=== PATIENT | female | born 1995 | race Caucasian/White ===

== ENCOUNTER 2020-12-23 07:42 | Outpatient (CLI) | payer BC, SELFPAY ==
[2020-12-23 12:18] LABS: HCG Quant, Pregnancy 111347 mIU/mL (1-3)
== END 2020-12-23 07:43 | disposition home or self-care (01) ==
LOC: LBO 07:50
PROVIDERS: PCP Family Medicine; Visit Provider Nurse Practitioner Women's Health
DX: O09.891 Supervision of other high risk pregnancies, first trimester (principal); Z97.5 Presence of (intrauterine) contraceptive device; Z32.01 Encounter for pregnancy test, result positive
CPT/HCPCS: 36415; 86850; 86900; 86901; 84702

== ENCOUNTER 2021-01-28 02:39 | Outpatient (CLI) | payer BC, SELFPAY ==
[2021-01-28 16:47] LABS: Kit/Specimen SENT
[2021-01-28 16:59] LABS: Abs Immature Grans 0.02 10^3/uL (0.0-0.06); Absolute Basophil Count 0.04 10^3/uL (0.0-0.2); Absolute Eosinophil Count 0.04 10^3/uL (0.0-0.7); Absolute Lymphocyte Count 1.85 10^3/uL (1.2-3.4); Absolute Monocyte Count 0.49 10^3/uL (0.1-0.8); Absolute Neutrophil Count 6.23 10^3/uL (1.2-6.7); Basophils % 0.5; Eosinophils % 0.5; HCT 39.2 % (36.0-46.0); HGB 13.5 g/dL (11.2-15.7); Immature Grans % 0.2; Lymphocytes % 21.3; MCH 32.5 pg (27.0-33.0); MCHC 34.4 % (32.0-36.0); MCV 94.5 fL (80-95); MPV 10.6 fL (8.0-11.0); Monocytes % 5.7; Neutrophils % 71.8; Nucleated RBC 0 %; Platelet Count 280 10^3/uL (130-400); RBC 4.15 10^6/uL (3.93-5.22); RDW 11.7 % (11.7-14.6); RDW-SD 40.7 fL; WBC 8.67 10^3/uL (4.4-10.8)
[2021-01-30 09:24] LABS: Hepatitis B Surface Ag Negative (Negative)
[2021-01-30 10:07] LABS: Hepatitis C Ab w Rflx HCV PCR Negative (Negative)
[2021-01-30 10:25] LABS: HIV-1/2 Ag & Ab Screen Negative (Negative)
[2021-01-30 10:51] LABS: Varicella IgG Antibody Positive (See Note)
[2021-01-30 10:54] LABS: Rubella IgG Ab (UVM) Positive (See Note)
[2021-01-30 15:20] LABS: Syphilis Total Ab w/Reflex Nonreactive (Nonreactive)
== END 2021-01-28 02:40 | disposition home or self-care (01) ==
LOC: LBO 02:39
PROVIDERS: PCP Family Medicine; Visit Provider Advanced Practice Midwife
DX: Z34.91 Encounter for supervision of normal pregnancy, unspecified, first trimester (principal); Z11.4 Encounter for screening for human immunodeficiency virus [HIV]; Z11.59 Encounter for screening for other viral diseases; Z01.84 Encounter for antibody response examination; Z3A.12 12 weeks gestation of pregnancy
CPT/HCPCS: 36415; 86787; 86803; 86850; 86900; 86901; 87340; 87389; 85025; 86762; 86780

== ENCOUNTER 2021-01-28 16:07 | Outpatient (REF) | payer BC, SELFPAY ==
--- NOTE | 2021-01-28 15:45 | PAPFT_PTH ---
PATIENT: Azalea Rousseau LOC: [facility] U#:[id number] AGE/SX: 25/F ROOM: RE01/28/[address]: Susana Cunningham : 1995 BED: DIS: 01/28/2021 SPEC #: [id number] RECD: 01/28/21 18:02 STATUS: MARCIA SU #: [id number] MICKI: 01/28/21 15:[address]: Susana Cunningham [facility] Cytology RECD BY: Irma Caruso ENTERED: 01/28/21 18:02 SP TYPE: PAPFT OTHR DR: Dmitriy Keller Tissues: 1 - CX/ENDOCX FOR PAP SMEARS Procedures: PAP THIN PREP/[facility] Screening Comments: [id number]
[2021-01-28 17:30] LABS: *AMPHETAMINES SCREEN URINE Negative (Negative); *BARBITURATES SCREEN URINE Negative (Negative); *BENZODIAZEPINES SCREEN URINE Negative (Negative); Cannabinoids THC Negative (Negative); Cocaine Screen,Urine Negative (Negative); METHADONE URINE SCREEN Negative (Negative); OPIATES URINE SCREEN Negative (Negative)
[2021-01-28 17:33] LABS: Tricyclic Antidepressants Negative (Negative)
[2021-01-30 14:29] LABS: Chlamydia Result Negative (Negative); GC Result Negative (Negative)
[2021-02-03 11:20] LABS: Buprenorphine Negative ng/mL (Cutoff: 5.0); Norbuprenorphine Negative ng/mL (Cutoff: 2.5)
== END 2021-01-28 16:08 | disposition home or self-care (01) ==
LOC: LBN 16:07
PROVIDERS: PCP Family Medicine; Visit Provider Advanced Practice Midwife
DX: Z12.4 Encounter for screening for malignant neoplasm of cervix (principal); Z11.3 Encounter for screening for infections with a predominantly sexual mode of transmission; Z3A.12 12 weeks gestation of pregnancy; Z34.91 Encounter for supervision of normal pregnancy, unspecified, first trimester
CPT/HCPCS: 80307; 87491; 87591; 88142; 87086; 87480; 87510; 87660

== ENCOUNTER 2021-05-22 01:18 | Outpatient (CLI) | payer BC, SELFPAY ==
[2021-05-22 09:50] LABS: HCT 35.7 % (36.0-46.0); MCH 32.3 pg (27.0-33.0); MCHC 33.6 % (32.0-36.0); MCV 96.2 fL (80-95); MPV 11.2 fL (8.0-11.0); Platelet Count 221 10^3/uL (130-400); RBC 3.71 10^6/uL (3.93-5.22); RDW 11.9 % (11.7-14.6); RDW-SD 41.8 fL; WBC 6.42 10^3/uL (4.4-10.8)
[2021-05-22 10:01] LABS: Glucose,1 Hr (Glucola) 115 mg/dL (80-140)
== END 2021-05-22 01:19 | disposition home or self-care (01) ==
LOC: LBO 01:18
PROVIDERS: PCP Family Medicine; Visit Provider Advanced Practice Midwife
DX: Z34.93 Encounter for supervision of normal pregnancy, unspecified, third trimester (principal)
CPT/HCPCS: 36415; 82950; 85027

== ENCOUNTER 2021-06-23 13:32 | Outpatient (CLI) | payer BC, SELFPAY ==
[2021-06-23] VITALS (8 sets, daily range): BP systolic 120–133; BP diastolic 83–92; PULSE 75–99; TEMP 36.5
[2021-06-23 15:03] LABS: HCT 37.1 % (36.0-46.0); HGB 12.1 g/dL (11.2-15.7); MCH 31.3 pg (27.0-33.0); MCHC 32.6 % (32.0-36.0); MCV 95.9 fL (80-95); MPV 10.8 fL (8.0-11.0); Platelet Count 204 10^3/uL (130-400); RBC 3.87 10^6/uL (3.93-5.22); RDW 11.7 % (11.7-14.6); RDW-SD 40.3 fL; WBC 8.05 10^3/uL (4.4-10.8)
[2021-06-23 15:23] LABS: ALT 14 U/L (14-59); AST 16 U/L (15-37); Albumin 2.9 g/dL (3.4-5.0); Alkaline Phosphatase 97 U/L (46-116); Anion Gap 9.5 mmol/L (3-11); BUN 5 mg/dL (7-18); Bilirubin, Total 0.2 mg/dL (0.2-1.0); CO2 25.5 mmol/L (21.0-32.0); CREATININE 0.5 mg/dL (0.55-1.02); Calcium 8.8 mg/dL (8.5-10.1); Chloride 106 mmol/L (98-107); Glucose 82 mg/dL (74-106); Potassium 3.8 mmol/L (3.5-5.1); Sodium 141 mmol/L (136-145); Total Protein 7.1 g/dL (6.4-8.2); Uric Acid 3.5 mg/dL (2.6-6.0)
[2021-06-23 15:30] LABS: PROTEIN < 6.0 mg/dL
--- NOTE | 2021-06-23 15:45 | W.OBNST ---
Date of service: 06/23/21 Time of Service: 15:46 NST Evaluation Reason for NST Reasons for Nonstress Test: GESTATIONAL HYPERTENSION Gestational Age Gestational Age in Weeks and Days: 32 Weeks and 6Days Test and Monitor Explained Test/Monitor Explained: Test Explained, Monitor Explained and Patient Verbalized Understanding Vital Signs Blood Pressure: 130/83 Pulse: 81 Temperature: 97.7 F NST Information Date on Monitor: 06/23/21 Time on Monitor: 13:33 Date off Monitor: 06/23/21 Time off Monitor: 14:24 Total Time on Monitor: 51 NST Interventions: PO Hydration NST Evaluation Patient States Movement: Present FHR Baseline: 140 Variability: Moderate 6-25 bpm Accelerations: 15x15 Decelerations: None NST Results: Reactive Note NST Note Note: BP 129/87 Labs nml, pt without sx RTO 1 week for repeat NST & BP check NST Reviewed and Verified by: Sharon Barron
[2021-06-23 16:22] LABS: COMMENT (LAB VIEW ONLY) 10.16 mg/dL
== END 2021-06-23 15:30 | disposition home or self-care (01) ==
LOC: BCD 13:35 → OBS 13:36
PROVIDERS: PCP Family Medicine; Visit Provider Advanced Practice Midwife
DX: O13.3 Gestational [pregnancy-induced] hypertension without significant proteinuria, third trimester (principal); Z3A.32 32 weeks gestation of pregnancy
CPT/HCPCS: 80053; 85027; 86850; 86900; 86901; 99211; 59025; 82565; 84156; 84550; 87086

== ENCOUNTER 2021-06-30 07:17 | Outpatient (CLI) | payer BC, SELFPAY ==
[2021-06-30 10:48] VITALS: BP 126/76; PULSE 95
[2021-06-30 10:49] VITALS: BP 126/76; PULSE 95; TEMP 36.9
--- NOTE | 2021-06-30 11:00 | W.OBNST ---
Date of service: 06/30/21 Time of Service: 10:50 NST Evaluation Reason for NST Reasons for Nonstress Test: GESTATIONAL HYPERTENSION Gestational Age Gestational Age in Weeks and Days: 33 Weeks and 6Days Test and Monitor Explained Test/Monitor Explained: Test Explained, Monitor Explained and Patient Verbalized Understanding Vital Signs Blood Pressure: 126/76 Pulse: 95 Temperature: 98.4 F Urine Results Urine Protein: Negative Urine Ketones: Negative Urine Glucose: Negative Urine Blood: Negative NST Information Date on Monitor: 06/30/21 Time on Monitor: 10:35 Date off Monitor: 06/30/21 NST Interventions: None NST Evaluation Patient States Movement: Present FHR Baseline: 120 Variability: Moderate 6-25 bpm Accelerations: 15x15 Decelerations: None NST Results: Reactive Note NST Note Note: Malathi presents for NST due to stage I HTN in . She is feeling well. Has no complaints. She had a tick bite this past weekend and is watching for any signs of bullseye or illness. No current symptoms. She denies HARTLEY, visual disturbance or epigastric pain. She is still living in [place] with her . They moved there for a work project for her but hopes to ultimately come back to this area to live. She will be moving in with her parents as she gets closer to her due date and they live [place] [address] from [facility]. She was offered flu vaccine today and declines. She will return in 1 week for NST and combined visit. She has been educated on signs of pre-eclampsia and when / how to call. We also discussed looking up a number of a closer hospital in case there is an urgent need for care such as ROM or vaginal bleeding prior to her relocating to her parents home here. No other questions today. BRYCE NST Reviewed and Verified by: Susana Brambila
[2021-06-30 11:04] VITALS: BP 126/76; PULSE 95; TEMP 36.9
[2021-06-30 11:06] VITALS: BP 126/76; PULSE 95; TEMP 36.9
== END 2021-06-30 11:08 | disposition home or self-care (01) ==
LOC: BCD 07:23 → OBS 09:52
PROVIDERS: PCP Family Medicine; Visit Provider Advanced Practice Midwife
DX: O13.3 Gestational [pregnancy-induced] hypertension without significant proteinuria, third trimester (principal); Z3A.33 33 weeks gestation of pregnancy
CPT/HCPCS: 59025

== ENCOUNTER 2021-07-07 08:56 | Outpatient (CLI) | payer BC, SELFPAY ==
[2021-07-07 10:16] VITALS: BP 131/81; PULSE 83; TEMP 37.1
[2021-07-07 10:54] VITALS: BP 131/81; PULSE 83
[2021-07-07 11:06] VITALS: BP 137/89; PULSE 94
[2021-07-07 11:49] LABS: HCT 35.1 % (36.0-46.0); HGB 11.6 g/dL (11.2-15.7); MCH 31.7 pg (27.0-33.0); MCV 95.9 fL (80-95); MPV 11.1 fL (8.0-11.0); Platelet Count 210 10^3/uL (130-400); RBC 3.66 10^6/uL (3.93-5.22); RDW-SD 41.9 fL; WBC 8.04 10^3/uL (4.4-10.8)
[2021-07-07 12:14] LABS: ALT 12 U/L (14-59); AST 16 U/L (15-37); Albumin 2.7 g/dL (3.4-5.0); Alkaline Phosphatase 105 U/L (46-116); Anion Gap 9.9 mmol/L (3-11); BUN 5 mg/dL (7-18); Bilirubin, Total 0.2 mg/dL (0.2-1.0); CO2 24.1 mmol/L (21.0-32.0); CREATININE 0.5 mg/dL (0.55-1.02); Calcium 8.7 mg/dL (8.5-10.1); Chloride 106 mmol/L (98-107); Glucose 106 mg/dL (74-106); Potassium 3.6 mmol/L (3.5-5.1); Sodium 140 mmol/L (136-145); Total Protein 6.5 g/dL (6.4-8.2); Uric Acid 3.8 mg/dL (2.6-6.0)
--- NOTE | 2021-07-07 12:28 | PDOC.NST_ITS ---
Date of service: 07/07/21 Time of Service: 12:28 NST Evaluation Reason for NST Reasons for Nonstress Test: GESTATIONAL HYPERTENSION Gestational Age Gestational Age in Weeks and Days: 34 Weeks and 6Days Test and Monitor Explained Test/Monitor Explained: Test Explained, Monitor Explained and Patient Verbalized Understanding Vital Signs Blood Pressure: 131/81 Pulse: 83 Temperature: 98.8 F Urine Results Urine Protein: Negative Urine Ketones: Negative Urine Glucose: Negative Urine Blood: Negative NST Information Date on Monitor: 07/07/21 Time on Monitor: 10:16 NST Interventions: None NST Evaluation Patient States Movement: Present Variability: Moderate 6-25 bpm Accelerations: 15x15 Decelerations: None NST Results: Reactive Note NST Note Note: B.P. recheck 137/89. preeclampsia panel drawn. Await results. RTO 1 week f or NST and US for growth and TEAGAN,. Sihns of preeclampsia reviewed. NST Reviewed and Verified by: Susana Cunningham
[2021-07-07 12:30] VITALS: BP 131/81; PULSE 83; TEMP 37.1
[2021-07-07 14:27] LABS: COMMENT (LAB VIEW ONLY) 17.57 mg/dL; PROTEIN < 6.0 mg/dL
== END 2021-07-07 11:53 | disposition home or self-care (01) ==
LOC: BCD 08:58 → OBS 10:14
PROVIDERS: PCP Family Medicine; Visit Provider Advanced Practice Midwife
DX: O13.3 Gestational [pregnancy-induced] hypertension without significant proteinuria, third trimester (principal); Z3A.34 34 weeks gestation of pregnancy
CPT/HCPCS: 59025; 36415; 80053; 85027; 82565; 84156; 84550

== ENCOUNTER 2021-07-15 01:38 | Outpatient (CLI) | payer BC, SELFPAY ==
--- NOTE | 2021-07-15 07:30 | DI.US_ITS ---
Exam(s) US OB TEAGAN WEIGHT EXAM: US OB TEAGAN WEIGHT CLINICAL HISTORY: interval growth,HYPERTENSION,I10,Z34.90 TECHNIQUE: Ultrasound performed using standard protocol. COMPARISON: US US OB 2-3 TRIMESTER from 03/27/2021 FINDINGS: Ob ultrasound was performed utilizing 3rd trimester protocol. biometry is consistent with a ge stational age of 36 weeks 0 days and EDC of October 13. The estimated weight is 2846 grams which is at the 54th percentile for predicted gestational ag e. Placenta is posterior with no placenta previa. There is visually a normal quantity of amniotic fluid . The TEAGAN is 21. Fetus is in cephalic presentation. heart rate is 1 2 1 BPM. IMPRESSION: DATA REPOSITORY:
== END 2021-07-15 01:58 ==
PROVIDERS: PCP Family Medicine; Visit Provider Advanced Practice Midwife
DX: O16.3 Unspecified maternal hypertension, third trimester (principal)
CPT/HCPCS: 76816

== ENCOUNTER 2021-07-15 07:13 | Outpatient (CLI) | payer BC, SELFPAY ==
[2021-07-15 13:05] VITALS: BP 125/84; PULSE 109; TEMP 36.8
[2021-07-15 13:10] VITALS: BP 125/84; PULSE 109
--- NOTE | 2021-07-15 13:45 | W.OBNST ---
Date of service: 07/15/21 Time of Service: 13:45 NST Evaluation Reason for NST Reasons for Nonstress Test: GESTATIONAL HYPERTENSION Gestational Age Gestational Age in Weeks and Days: 34 Weeks and 6Days Test and Monitor Explained Test/Monitor Explained: Test Explained, Monitor Explained and Patient Verbalized Understanding Vital Signs Blood Pressure: 125/84 Pulse: 109 Temperature: 98.3 F Urine Results Urine Protein: Negative Urine Ketones: Negative Urine Glucose: Negative Urine Blood: Negative NST Information Date on Monitor: 07/15/21 Time on Monitor: 13:11 Date off Monitor: 07/15/21 Time off Monitor: 13:32 Total Time on Monitor: 21 NST Interventions: PO Hydration Contraction Frequency: 0 NST Evaluation Patient States Movement: Present FHR Baseline: 135 Variability: Moderate 6-25 bpm Accelerations: 15x15 Decelerations: None NST Results: Reactive Note NST Note Note: Presented for scheduled weekly NST due to stage I HTN. Feeling well, no signs of preeclampsia. Denies labor signs. US today normal growth and TEAGAN. NST is reactive and reassuring. BP WNL. will continue present management. BRYCE NST Reviewed and Verified by: Susana Brambila
[2021-07-15 13:46] VITALS: BP 125/84; PULSE 109; TEMP 36.8
== END 2021-07-15 13:40 | disposition home or self-care (01) ==
LOC: BCD 07:13 → OBS 13:03
PROVIDERS: PCP Family Medicine; Visit Provider Advanced Practice Midwife
DX: O13.3 Gestational [pregnancy-induced] hypertension without significant proteinuria, third trimester (principal); Z3A.34 34 weeks gestation of pregnancy
CPT/HCPCS: 59025

== ENCOUNTER 2021-07-20 07:50 | Outpatient (CLI) | payer BC, SELFPAY ==
[2021-07-20 10:28] VITALS: BP 132/84; PULSE 97; TEMP 36.7
[2021-07-20 10:34] VITALS: BP 138/91; PULSE 109
[2021-07-20 10:42] VITALS: BP 132/84; PULSE 97
--- NOTE | 2021-07-20 11:08 | PDOC.NST_ITS ---
Date of service: 07/20/21 Time of Service: 11:08 NST Evaluation Reason for NST Reasons for Nonstress Test: CHRONIC HYPERTENSION Gestational Age Gestational Age in Weeks and Days: 36 Weeks and 5Days Test and Monitor Explained Test/Monitor Explained: Test Explained, Monitor Explained and Patient Verbalized Understanding Vital Signs Blood Pressure: 132/84 Pulse: 97 Temperature: 98.1 F Urine Results Urine Protein: Negative Urine Ketones: Negative Urine Glucose: Positive Urine Blood: Negative NST Information Date on Monitor: 07/20/21 Time on Monitor: 10: Date off Monitor: 07/20/21 Time off Monitor: 10:45 Total Time on Monitor: 22 NST Interventions: PO Hydration Contraction Frequency: occasional NST Evaluation Patient States Movement: Present FHR Baseline: 135 Variability: Moderate 6-25 bpm Accelerations: 15x15 Decelerations: None NST Results: Reactive Note NST Note Note: Azalea was seen at for her NST and her visit. We collected GBS and UDS with bup/norbup as well as her gbg which was 12.6. She reports she has moved back to this area in the past week as her 's job was relocated to [place]. She is happy to be back. Denies signs of pre-eclampsia or labor. She is aware that IOL will be recommended around 39 weeks unless otherwise indicated by symptoms or BP. She will return in 1 week for NST and reassessment. These recommendations were agreed on by Dr. Lynne in consultation today with LENORA. NST Reviewed and Verified by: Susana Brambila
[2021-07-20 11:11] VITALS: BP 132/84; PULSE 97; TEMP 36.7
== END 2021-07-20 10:50 | disposition home or self-care (01) ==
LOC: BCD 07:50 → OBS 10:21
PROVIDERS: PCP Family Medicine; Visit Provider Advanced Practice Midwife
DX: O10.013 Pre-existing essential hypertension complicating pregnancy, third trimester (principal); Z36.85 Encounter for antenatal screening for Streptococcus B; Z3A.36 36 weeks gestation of pregnancy
CPT/HCPCS: 59025

== ENCOUNTER 2021-07-20 13:49 | Outpatient (REF) | payer BC, SELFPAY ==
[2021-07-20 17:43] LABS: *AMPHETAMINES SCREEN URINE Negative (Negative); *BARBITURATES SCREEN URINE Negative (Negative); *BENZODIAZEPINES SCREEN URINE Negative (Negative); Cannabinoids THC Negative (Negative); Cocaine Screen,Urine Negative (Negative); METHADONE URINE SCREEN Negative (Negative); OPIATES URINE SCREEN Negative (Negative); Tricyclic Antidepressants Negative (Negative)
[2021-07-23 10:00] LABS: Buprenorphine Negative ng/mL (Cutoff: 5.0); Norbuprenorphine Negative ng/mL (Cutoff: 2.5)
== END 2021-07-20 13:50 | disposition home or self-care (01) ==
LOC: LBN 13:49
PROVIDERS: PCP Family Medicine; Visit Provider Advanced Practice Midwife
DX: Z34.93 Encounter for supervision of normal pregnancy, unspecified, third trimester (principal)
CPT/HCPCS: 80307; 87081

== ENCOUNTER 2021-07-27 07:33 | Outpatient (CLI) | payer OTHER, SELFPAY ==
[2021-07-27 09:08] VITALS: BP 135/90; PULSE 91; TEMP 36.7
[2021-07-27 09:32] VITALS: BP 135/90; PULSE 91
[2021-07-27 09:42] VITALS: BP 144/88; PULSE 96
--- NOTE | 2021-07-27 09:51 | W.OBNST ---
Date of service: 07/27/21 Time of Service: 09:51 NST Evaluation Reason for NST Reasons for Nonstress Test: CHRONIC HYPERTENSION Gestational Age Gestational Age in Weeks and Days: 37 Weeks and 5Days Test and Monitor Explained Test/Monitor Explained: Test Explained, Monitor Explained and Patient Verbalized Understanding Vital Signs Blood Pressure: 135/90 Pulse: 91 Temperature: 98.1 F NST Information Date on Monitor: 07/27/21 Time on Monitor: 09:11 Date off Monitor: 07/27/21 Time off Monitor: 09:47 Total Time on Monitor: 36 NST Interventions: None NST Evaluation Patient States Movement: Present FHR Baseline: 130 Variability: Moderate 6-25 bpm Accelerations: 15x15 Decelerations: None NST Results: Reactive Note NST Note Note: Malathi is here for NST for Oskar 1 hypertension. Repeat B.P. 144/88. Denies symptoms of preeclampsia. Preeclampsia panel ordered. Await results. Discussed IOL at 38-39 weeks. Will continue modified bedrest at home. Reviewed signs of preeclampsia. Repeat NST in 3 days with labs if indicated. NST Reviewed and Verified by: Susana Cunningham
[2021-07-27 09:56] VITALS: BP 135/90; PULSE 91; TEMP 36.7
[2021-07-27 10:06] LABS: HCT 34.4 % (36.0-46.0); MCV 96.9 fL (80-95); Platelet Count 198 10^3/uL (130-400); RBC 3.55 10^6/uL (3.93-5.22); RDW 12.6 % (11.7-14.6); RDW-SD 43.9 fL
[2021-07-27 10:22] LABS: ALT 16 U/L (14-59); AST 23 U/L (15-37); Albumin 2.9 g/dL (3.4-5.0); Alkaline Phosphatase 136 U/L (46-116); Anion Gap 8.8 mmol/L (3-11); BUN 12 mg/dL (7-18); Bilirubin, Total 0.2 mg/dL (0.2-1.0); CO2 25.2 mmol/L (21.0-32.0); CREATININE 0.6 mg/dL (0.55-1.02); Calcium 8.6 mg/dL (8.5-10.1); Chloride 102 mmol/L (98-107); Glucose 74 mg/dL (74-106); Potassium 3.7 mmol/L (3.5-5.1); Sodium 136 mmol/L (136-145); Uric Acid 4.5 mg/dL (2.6-6.0)
[2021-07-27 10:39] LABS: COMMENT (LAB VIEW ONLY) 13.59 mg/dL; PROTEIN < 6.0 mg/dL
== END 2021-07-27 10:00 | disposition home or self-care (01) ==
LOC: BCD 07:40 → OBS 09:06
PROVIDERS: PCP Family Medicine; Visit Provider Advanced Practice Midwife
DX: O10.013 Pre-existing essential hypertension complicating pregnancy, third trimester (principal); Z3A.37 37 weeks gestation of pregnancy
CPT/HCPCS: 59025; 36415; 80053; 85027; 82565; 84156; 84550

== ENCOUNTER 2021-07-30 07:36 | Outpatient (CLI) | payer OTHER, SELFPAY ==
[2021-07-30 09:11] VITALS: BP 139/79; PULSE 84; TEMP 36.8
[2021-07-30 09:28] VITALS: BP 139/79; PULSE 84
[2021-07-30 11:16] VITALS: BP 139/79; PULSE 84; TEMP 36.8
--- NOTE | 2021-07-30 11:16 | W.OBNST ---
Date of service: 07/30/21 Time of Service: 11:16 NST Evaluation Reason for NST Reasons for Nonstress Test: CHRONIC HYPERTENSION Gestational Age Gestational Age in Weeks and Days: 33 Weeks and 5Days Test and Monitor Explained Test/Monitor Explained: Test Explained, Monitor Explained and Patient Verbalized Understanding Vital Signs Blood Pressure: 139/79 Pulse: 84 Temperature: 98.2 F Urine Results Urine Protein: Negative Urine Ketones: Negative Urine Glucose: Negative Urine Blood: Negative NST Information Date on Monitor: 07/30/21 Time on Monitor: 09:14 Date off Monitor: 07/30/21 Time off Monitor: 09:57 Total Time on Monitor: 43 NST Interventions: PO Hydration NST Evaluation Patient States Movement: Present FHR Baseline: 130 Variability: Moderate 6-25 bpm Accelerations: 15x15 Decelerations: None NST Results: Reactive Note NST Note Note: Return to for repeat NST and BP check 08/03 NST Reviewed and Verified by: Sharon Barron
== END 2021-07-30 10:01 | disposition home or self-care (01) ==
LOC: BCD 07:40 → OBS 09:09
PROVIDERS: PCP Family Medicine; Visit Provider Advanced Practice Midwife
DX: O10.013 Pre-existing essential hypertension complicating pregnancy, third trimester (principal); Z3A.33 33 weeks gestation of pregnancy
CPT/HCPCS: 59025

== ENCOUNTER 2021-08-02 21:18 | Outpatient (CLI) | payer OTHER, SELFPAY ==
[2021-08-02 23:15] LABS: COMMENT (LAB VIEW ONLY) 21.32 mg/dL; PROTEIN < 6.0 mg/dL
--- NOTE | 2021-08-02 23:18 | W.OBNST ---
Date of service: 08/02/21 Time of Service: 23:18 NST Evaluation Reason for NST Reasons for Nonstress Test: CHRONIC HYPERTENSION Gestational Age Gestational Age in Weeks and Days: 38 Weeks and 4Days Test and Monitor Explained Test/Monitor Explained: Test Explained, Monitor Explained and Patient Verbalized Understanding NST Information Date on Monitor: 08/02/21 Time on Monitor: 21:59 Date off Monitor: 08/02/21 Time off Monitor: 22:20 Total Time on Monitor: 21 NST Interventions: PO Hydration NST Evaluation Patient States Movement: Present FHR Baseline: 135 Variability: Moderate 6-25 bpm Accelerations: 15x15 Decelerations: None NST Results: Reactive Note NST Note Note: cvx 4/100%, vtx LOP @ -3, intact membranes BP 136/89 will admit for outpt observation to r/o labor urine prot/creat ratio sent NST Reviewed and Verified by: Sharon Barron
== END 2021-08-02 22:20 ==
LOC: BCD 21:25 → OBS 21:56
PROVIDERS: PCP Family Medicine; Visit Provider Advanced Practice Midwife
DX: O10.013 Pre-existing essential hypertension complicating pregnancy, third trimester (principal); Z3A.38 38 weeks gestation of pregnancy
CPT/HCPCS: 59025; 82565; 84156

== ENCOUNTER 2021-08-02 22:34 | Inpatient (IN) | payer OTHER, SELFPAY ==
--- NOTE | 2021-08-02 22:35 | HPE_ITS ---
Date of service: 08/02/21 Time of Service: 22:36 Assessment and Plan Assessment and plan (1) First stage of labor: Status: Acute Assessment and plan: A: 26 yo G1 @ 38+4 wks Early labor, spontaneous onset, Coping well, relaxed manner, favorable cvx Category 1 tracing and BP stable on triage eval GBS neg, low risk for SD, moderate risk for PPH d/t cHTN P: Pt agrees to overnight observation for onset active labor Plans for low interventive care, agrees to IV access prior to delivery urine prot/creat sent to lab Will reassess labor status prn (2) 38 weeks gestation of : Status: Acute (3) Stage 1 hypertension: Status: Acute Assessment and plan: A: Has been followed for stage 1 cHTN, Increased surveillance @ 32 wks, no meds, nml labs & imaging Admission BP 136/89. consistent with baseline throughout HTN labs last drawn 07/27 & nml P: urine prot/creat ratio sent Will draw full HTN labs when pt is admitted for active labor OB-HPI Labor/Delivery History of Present Illness Reason for Visit: LABOR AT TERM Chief Complaint: Uterine Contractions (contractions early this morning from 0330 that diminished by noon, then returned at 1900 tonight, more painful and with back pain. No bleeding, no ROM, no vomiting.). AV Calculator Estimated Delivery Date Method Current WG Current Estimate 08/12/21 Ultrasound #1 38w 4d Other Estimates 08/14/21 Ultrasound #2 38w 2d Comments: Pt reaffirms her desires for low intervention labor, agrees to overnight observation for cervical change, is accompanied by her Shahriar. Has been counseled on the advisability of establishing IV access once active labor is determined. History of Present Expected Delivery Route/Plan - CNM FOB: Shahriar Rousseau (his first child) BG Stage 1 HTN, no meds--> ACOG rec delivery by or at 40 wks Will have Shahriar and possibly her mother for labor support. GBS negative Specific Issues/Plan 1. Conception with IUD in place-paragard removed 01/09. viable by US. 2. Desires [place] test- declines CF and SMA. Drawn 01/28-- WNL- declines AFP. 3. Azalea declines covid vaccine, FOB received the vaccine. 4. History of frequent UTI - Urine culture at 32 weeks= negative/ contam 5. Stage I hypertension, discussed at 24 week visit, sono for interval growth @ 36 wks on 07/15 5a. Labs done @ 32 wks are all WNL. Will begin weekly check-ups for BP monitoring. 5b. Growth 54% TEAGAN 21 WNL, Vertex Assessment: History Reviewed & Current Review of Systems All systems reviewed & are unremarkable except as noted in HPI and below Constitutional Constitutional: Reports system reviewed and no additional complaints, except as documented Eyes Eyes: Reports system reviewed and no additional complaints, except as documented ENT Ears, Nose, Mouth, and Throat: Reports system reviewed and no additional complaints, except as documented Cardiovascular Cardiovascular: Reports system reviewed and no additional complaints, except as documented Respiratory Respiratory: Reports system reviewed and no additional complaints, except as documented Gastrointestinal Gastrointestinal: Reports system reviewed and no additional complaints, except as documented Genitourinary Genitourinary: Reports system reviewed and no additional complaints, except as documented Musculoskeletal Musculoskeletal: Reports back pain Integumentary/Breasts Skin/Breast: Reports system reviewed and no additional complaints, except as documented Neurologic Neurologic: Reports system reviewed and no additional complaints, except as documented Psychiatric Psychiatric: Reports system reviewed and no additional complaints, except as documented PFSH All Active Problems (Updated 01/28/21 @ 15:05 by Susana Cunningham CNM) 38 weeks gestation of (Acute) First stage of labor (Acute) Stage 1 hypertension (Acute) (Acute) [place] teeth extracted (Acute) Medical History (Updated 08/02/21 @ 22:47 by Sharon Barron) Vaginal discharge during in first trimester Family History (Updated 06/23/21 @ 13:15 by Susana Cunningham CNM) Maternal Grandmother Breast cancer age 50 Social History Smoking/Tobacco Use Status: Never Smoking risk assessment performed?: Yes Drug use: Never History History 1 Para 0 Hx # Term Pregnancies 0 Multiple births 0 Hx # Pregnancies 0 Ectopic pregnancies 0 AB induced 0 Hx Number of Living Children 0 AB spontaneous 0 Meds Allergies and Home Medications Allergies Allergy/AdvReac Type Severity Reaction Status Date / Time No Known Allergies Allergy Verified 08/02/21 22:51 Home Medications Medication Instructions Recorded Confirmed Type prenat.vits,parveen,znl-ousn-eynxc 1 tab PO DAILY 01/06/21 07/30/21 History cranberry 400 mg capsule 400 mg PO DAILY 02/27/21 07/30/21 History Exam Physical Exam Vital signs: 136/89 P-75, R-16, T-97.9 Vital Signs Reviewed: Yes Constitutional Constitutional: no acute distress Detailed Labor and Delivery Exam Dilation: 4 Effacement (%): 100 station: -3 Position: LOP Cervix position: mid Consistency: soft STOVALL Score(Cervical Ripeness Score): 7 Amniotic Membrane Status: Intact (large BBOW during contraction) Contraction Frequency(min): irregular, q3-5 Contraction Duration(sec): 40-60 Contraction Intensity: Mild/Moderate Fetus A Heart Rate Baseline: 135 Monitor Accelerations: 15 X 15 Monitor Decelerations: None Variability: Moderate (6-25 BPM) Categories: Category I Est. Weight: 7 lb 0.877 oz Est. Weight: 3200 gms HEENT Exam HEENT Exam: Normal Neck Exam Neck Exam: Normal Chest/Brest/Axilla Exam Chest Exam: Normal Breast Exam Breast Exam: Not Done Respiratory Exam Respiratory Exam: Normal Cardiovascular Exam Cardiovascular Exam: Normal Abdominal Exam Abdominal Exam: Normal (Gravid, nontender) Rectal Exam Rectal Exam: Normal Exam Exam: Normal Extremities Exam Extremities Exam: Normal Back/Spine/Pelvis Exam Back Exam: Normal Pelvis Adequate: Yes Skin Exam Skin Exam: Normal Neurological Exam Neurological Exam: Normal Psychiatric Exam Psychiatric Exam: Normal (coping well with contractions, breathes calmly, conversational between) Results Results Group Beta Strep: Negative Blood Type: A+ Rubella Status: Immune Varicella Immunity: Immune Risk Assessment Risk for Shoulder Dystocia Historical/Initial OB: NEGATIVE FOR: Pelvic Abnormality, Pre- BMI>30, Previous Shoulder Dystocia or Previous Macrosomia Increased Risk?: No Delivery Plan @ 36wks: spont labor prior to 39 wks, , plan for IOL after 39 wks Risk for Pre-Eclampsia Yes, if one or more: NEGATIVE FOR: Hx Pre-E/Gest HTN, Chronic HTN, Multiple Gestation, Pre-gestational DM, Renal Disease, Systemic Lupus or APA Syndrome Yes, if 2 or more: POSITIVE FOR: Nulliparity; NEGATIVE FOR: Age>= 35 yrs, >10yr btwn pregnancies, BMI>30, ethinicty, Mother/Sister w/ Pre-E or Previous IUGR Risk for Post- Hemorrhage Initial: NEGATIVE FOR: Multiple Gestation, Previous PPH, Known Clotting Deficiency, Grand Multiparity or Anticoagulation At Risk?: Yes Interventions: due to stage 1 HTN, no meds required Counseled re: Active Management: Yes Risks Reviewed Risks Reviewed Upon Admission: Yes
[2021-08-02 22:52] VITALS: BP 136/89; PULSE 75; RESP 16; TEMP 36.6; O2SAT 99
[2021-08-03] VITALS (19 sets, daily range): BP systolic 111–143; BP diastolic 62–87; PULSE 75–126; RESP 16–18; TEMP 36.3–36.9; O2SAT 97
--- NOTE | 2021-08-03 01:40 | NUR.NOTE ---
Nursing Note: Pt is sitting in rocking chair. Reviews comfort measures such as shower and tub. Pt has no needs at this time.
[2021-08-03] MEDS: Normal Saline Flush 10 ML SYR IVP (04:50)
[2021-08-03 04:53] LABS: HCT 34.6 % (36.0-46.0); HGB 11.2 g/dL (11.2-15.7); MCH 30.5 pg (27.0-33.0); MCHC 32.4 % (32.0-36.0); MCV 94.3 fL (80-95); MPV 11.9 fL (8.0-11.0); Platelet Count 219 10^3/uL (130-400); RBC 3.67 10^6/uL (3.93-5.22); RDW 12.6 % (11.7-14.6); RDW-SD 43.5 fL; WBC 11.61 10^3/uL (4.4-10.8)
[2021-08-03 05:05] LABS: ALT 14 U/L (14-59); AST 22 U/L (15-37); Albumin 3.1 g/dL (3.4-5.0); Alkaline Phosphatase 149 U/L (46-116); Anion Gap 13.1 mmol/L (3-11); BUN 10 mg/dL (7-18); Bilirubin, Total 0.3 mg/dL (0.2-1.0); CO2 20.9 mmol/L (21.0-32.0); CREATININE 0.7 mg/dL (0.55-1.02); Calcium 8.8 mg/dL (8.5-10.1); Chloride 101 mmol/L (98-107); Glucose 91 mg/dL (74-106); Sodium 135 mmol/L (136-145); Total Protein 7.2 g/dL (6.4-8.2)
[2021-08-03 05:25] LABS: Source Nasal/Nares
[2021-08-03 06:02] LABS: COVID-19 PCR Negative (Negative)
--- NOTE | 2021-08-03 06:16 | W.PM.OBNL1 ---
Date of service: 08/03/21 Time of Service: 06:16 Contractions Contraction Frequency(min): q3-4 Intensity: Moderate Fetus A Monitor: Doppler Heart Rate Baseline: 140 Assessment and Plan Assessment and plan (1) First stage of labor: Status: Acute Assessment and plan: A: Labor more active since 429 Admitted to inpt for L&D Using nitrous effectively at bedside providing support P: Admission procedures completed IV access established VE deferred, pt coping well Expectant management, anticipate Objective Pt attempting to rest though contractions remain persistent BP remains normotensive @ 131/78 All HTN labs drawn and nml this morning Status changed from obs to inpt admit Subjective Interval history since last seen: Contractions have increased in strength and frequency, reports bloody vaginal mucous @ 0430, requests nitrous oxide inhalant Results Hemoglobin/Hematocrit: Hgb 11.2 g/dL (11.2-15.7) 08/03/21 04:47 Hct 34.6 % (36.0-46.0) L 08/03/21 04:47
--- NOTE | 2021-08-03 09:42 | W.PM.OBNL1 ---
Date of service: 08/03/21 Time of Service: 09:42 Pelvic Exam Dilation: 6 Effacement (%): 100 station: -1 Cervix Position: mid Consistency: soft Vaginal Exam Presentation: Cephalic Contractions Monitor Mode: External Contraction Frequency(min): every 3 minutes Intensity: Moderate Fetus A Monitor: Doppler Heart Rate Baseline: 130 Presentation: Vertex Variability: Moderate (6-25 BPM) Categories: Category I FHR Rhythm: Regular Accelerations: 15 X 15 Decelerations: None Amniotic Membrane Status: Ruptured Rupture Method: Artifical Amniotic Fluid: Clear Assessment and Plan Assessment and plan (1) First stage of labor: Status: Acute Assessment and plan: Coping well with contractions. SVE performed and cervix 6-7 cms. ROM for a large amount of clear fluid. Category 1 tracing. Comfort measures provided and Azalea would like to use the shower.. Anticipate . Objective Abnormal lab results 08/03/21 08/03/21 Range/Units 04:47 04:47 WBC 11.61 H (4.4-10.8) 10^3/uL RBC 3.67 L (3.93-5.22) 10^6/uL Hct 34.6 L (36.0-46.0) % MPV 11.9 H (8.0-11.0) fL Sodium 135 L (136-145) mmol/L Carbon Dioxide 20.9 L (21.0-32.0) mmol/L Anion Gap 13.1 H (3-11) mmol/L Alkaline Phosphatase 149 H (46-116) U/L Albumin 3.1 L (3.4-5.0) g/dL Temp Pulse Resp BP Pulse Ox 97.7 F 107 H 16 133/72 97 08/03/21 08:16 08/03/21 09:17 08/03/21 09:17 08/03/21 09:17 08/03/21 03:16 Laboratory Results WBC 11.61 10^3/uL (4.4-10.8) H 08/03/21 04:47 RBC 3.67 10^6/uL (3.93-5.22) L 08/03/21 04:47 Hgb 11.2 g/dL (11.2-15.7) 08/03/21 04:47 Hct 34.6 % (36.0-46.0) L 08/03/21 04:47 MCV 94.3 fL (80-95) 08/03/21 04:47 MCH 30.5 pg (27.0-33.0) 08/03/21 04:47 MCHC 32.4 % (32.0-36.0) 08/03/21 04:47 RDW 12.6 % (11.7-14.6) 08/03/21 04:47 Plt Count 219 10^3/uL (130-400) 08/03/21 04:47 MPV 11.9 fL (8.0-11.0) H 08/03/21 04:47 Sodium 135 mmol/L (136-145) L 08/03/21 04:47 Potassium 4.0 mmol/L (3.5-5.1) 08/03/21 04:47 Chloride 101 mmol/L (98-107) 08/03/21 04:47 Carbon Dioxide 20.9 mmol/L (21.0-32.0) L 08/03/21 04:47 Anion Gap 13.1 mmol/L (3-11) H 08/03/21 04:47 BUN 10 mg/dL (7-18) 08/03/21 04:47 Creatinine 0.7 mg/dL (0.55-1.02) 08/03/21 04:47 Estimated GFR/1.73 m2 >= 60.00 (mL/min/1.73m2) 08/03/21 04:47 Glucose 91 mg/dL (74-106) 08/03/21 04:47 Calcium 8.8 mg/dL (8.5-10.1) 08/03/21 04:47 Total Bilirubin 0.3 mg/dL (0.2-1.0) 08/03/21 04:47 AST 22 U/L (15-37) 08/03/21 04:47 ALT 14 U/L (14-59) 08/03/21 04:47 Alkaline Phosphatase 149 U/L (46-116) H 08/03/21 04:47 Total Protein 7.2 g/dL (6.4-8.2) 08/03/21 04:47 Albumin 3.1 g/dL (3.4-5.0) L 08/03/21 04:47 COVID-19 Source Nasal/Nares 08/03/21 04:40 SARS-CoV-2 (PCR) Negative (Negative) 08/03/21 04:40 Patient ABO/Rh A Positive 08/03/21 04:47 Antibody Screen NEGATIVE 08/03/21 04:47 Subjective Interval history since last seen: fatigue. Using nitrous oxide for pain. coping well. Labor progressing slowly. Azalea was unable to get any sleep last night. BP 130-140/70-90. Offered ROM if indicated and Azalea agreed to that. Results Hemoglobin/Hematocrit: Hgb 11.2 g/dL (11.2-15.7) 08/03/21 04:47 Hct 34.6 % (36.0-46.0) L 08/03/21 04:47 Abnormal Lab Findings: Abnormal Labs 08/03/21 08/03/21 04:47 04:47 WBC 11.61 H RBC 3.67 L Hct 34.6 L MPV 11.9 H Sodium 135 L Carbon Dioxide 20.9 L Anion Gap 13.1 H Alkaline Phosphatase 149 H Albumin 3.1 L
[2021-08-03] MEDS: Oxytocin 10 UNITS/ML VIAL IM (13:12)
[2021-08-03] MEDS: Lidocaine 1% Multi-Dose 20 ML VIAL IJ (13:17)
--- NOTE | 2021-08-03 13:54 | W.OBDELIVERY ---
Date of service: 08/03/21 Time of Service: 13:54 OB Labor/ Delivery Information Baby A Delivery Delivery Method: Spontaneaous Presentation: Cephalic Cephalic Position: Vertex Vertex Position: Right Occipital Anterior Cord Description-Baby A: 3 Vessels Amniotic Fluid: Clear Estimated Blood Loss: 300 Delivery Outcome: Liveborn Transferred: Remains with Mother Note: FHTs 130s during first stage of labor. FHTs 130s in second stage with doppler. Progressed to full dilation and began pushing. Second stage huddle was done. Pushed well in various positions, Spontaneous delivery of female infant delivered in MENDY position. Baby was placed on mother's abdomen and dried and stimulated. Spontaneous cry. Cord was clamped after it stopped pulsing and cut by the baby's father. The placenta delivered spontaneously and appears to by intact with a three vessel cord. Pitocin 10u IM was administered after delivery of the placenta. The perineum was inspected and a second degree laceration was repaired. The baby did breastfeed. After delivery, Mother and baby and father of the baby were stable and bonding well in the delivery room and there were no complications. Labor/Delivery Information Group Beta Strep: Negative Rubella Status: Immune Blood Type: A+ Varicella Immunity: Immune Born En Route: No Stages of Labor Onset of Labor Date: 08/02/21 Onset of Labor Time: 03:00 Complete Dilatation Date: 08/03/21 Complete Dilatation Time: 11:55 Labor - Stage 1 Duration: 24 hours and 0 minutes ROM Baby A: 08/03/21 ROM Baby A: 09:29 Baby A Infant Gender: Female Gestational Status: Term (39-41.6 wks) Interventions Repair of Laceration Type: Perineal , Laceration Extension: Second Degree . Sponge Count Correct: No Sponges Placed in Vagina , Sharp Count Correct: Yes . Laceration Repair Note: repair of perineal laceration with 3-0 vicryl sutures and repair of external perineum with interrupted 3-0 vicryl sutures x 4.
[2021-08-03] MEDS: Ibuprofen 600 MG TAB PO (15:46)
[2021-08-03] MEDS: Dibucaine 1% 28 GM TUBE TP (15:46)
[2021-08-03] MEDS: Acetaminophen 325 MG TAB 650 MG PO (15:46)
[2021-08-03] MEDS: Hamamelis Leaf/Glycerin 100 EACH BOX PR (15:47)
[2021-08-04] MEDS: Acetaminophen 325 MG TAB 650 MG PO (05:19)
[2021-08-04] MEDS: Ibuprofen 600 MG TAB PO (05:19)
[2021-08-04 05:25] VITALS: BP 138/91; TEMP 36.4
[2021-08-04 07:21] LABS: HCT 29.9 % (36.0-46.0); HGB 9.7 g/dL (11.2-15.7); MCH 30.7 pg (27.0-33.0); MCHC 32.4 % (32.0-36.0); MCV 94.6 fL (80-95); MPV 11.5 fL (8.0-11.0); Platelet Count 162 10^3/uL (130-400); RBC 3.16 10^6/uL (3.93-5.22); RDW 12.8 % (11.7-14.6); RDW-SD 44.4 fL; WBC 11.08 10^3/uL (4.4-10.8)
[2021-08-04 07:30] VITALS: BP 133/87; PULSE 85; RESP 16; TEMP 36.4; O2SAT 99
--- NOTE | 2021-08-04 11:46 | OBPPV_ITS ---
Date of service: 08/04/21 Time of Service: 11:46 Assessment and Plan Assessment and plan (1) Term delivered: Status: Acute Assessment and plan: A: PPD #1, nml recovery off to a good start Satisfied with experience normotensive, afebrile, pulse 80-90 P: Pt hoping baby can be discharged at 24 hrs this afternoon Good support from FOB, friends and family Plans POP's for BCM @ 1 month Written instructions reviewed and given to pt F/up at 2 & 6 wks Pt strongly encouraged to establish care with PCP for BP f/up custodial Subjective Subjective Patient comments: No complaints, Pain well controlled, Tolerating diet and Flatus present baby status: Doing well, Nursing well, Rooming in and Strong Bonding Observed feeding status: Exclusively breast feeding Exam Physical Exam Vital signs: Temp Pulse Resp BP Pulse Ox 97.5 F L 85 16 133/87 99 08/04/21 07:30 08/04/21 07:30 08/04/21 07:30 08/04/21 07:30 08/04/21 07:30 Vital Signs Reviewed: Yes Constitutional Constitutional: no acute distress HEENT Exam HEENT Exam: Normal Neck Exam Neck Exam: Normal Breast Exam Bilateral: Breast Exam: Normal and Soft Nipple Exam: Normal, Uninjured and Other (mildly sore) Respiratory Exam Respiratory Exam: Normal Cardiovascular Exam Cardiovascular Exam: Normal Abdominal Exam Abdomen: Other (nontender, soft) Fundal Exam Fundus: Below Umbilicus and Firm Rectal Exam Rectal Exam: Normal Exam Perineum: Repair Intact Extremities Exam Extremity Exam: Normal Back/Spine/Pelvis Exam Back Exam: Normal Skin Exam Skin Exam: Normal Neurological Exam Neurological Exam: Normal Psychiatric Exam Psychiatric Exam: Normal Results Hemoglobin/Hematocrit: Hgb 9.7 g/dL (11.2-15.7) L 08/04/21 07:11 Hct 29.9 % (36.0-46.0) L 08/04/21 07:11
--- NOTE | 2021-08-04 15:01 | W.PM.OBDISCH ---
Date of service: 08/04/21 Time of Service: 15:01 DS: Diagnosis Discharge Diagnosis (1) Term delivered: Status: Acute Discharge Plan Disposition Patient Disposition: HOME Condition: Good Discharge Details Reason For Visit: LABOR AT TERM Admit Date/Time: 08/04/21 04:25 Admit Provider: Sharon Barron Attending Provider: Sharon Barron Primary Care Provider: Dmitriy Keller Hospital Course Hospital Course: Spontaneous labor, , nml course, desires discharge to home at 24 hrs. Home Meds and New Rx's Prescriptions: No Action prenat.vits,parveen,[id number] Tablet 1 tab PO DAILY RF: 0 cranberry 400 mg capsule 400 mg PO DAILY RF: 0 Discharge Instructions Additional Instructions: Please keep 2 & 6 week appointments with your senior strategy manager, call for any questions or concerns Stand Alone Forms: BC Post Vaginal Deliver Activity:: Activity as Tolerated Equipment/Supplies:: No Equipment Needed Diet:: Normal Diet Discharge Orders Discharge Orders: Discharge Order (Routine); Ordered 08/04/21 Ordered By: Sharon Barron OB:DS Summary Summary Vaginal Delivery Method: Spontaneaous Episiotomy Description: None Laceration Description: Perineal Laceration Extension: Second Degree Contraception Discussed Contraception Discussed: Yes Contraceptive Plan: Control Pill/Patch, Gender-Baby A: Female Status at Discharge Functional status at discharge: independent ambulation Overall status at discharge: patient is progressing back to baseline Mental Status: mental status grossly normal Speech and Movement: speech and movement normal and speech clear Mood: congruent mood Affect: normal affect Exam Physical Exam Vital signs: Temp Pulse Resp BP Pulse Ox 97.5 F L 85 16 133/87 99 08/04/21 07:30 08/04/21 07:30 08/04/21 07:30 08/04/21 07:30 08/04/21 07:30 Constitutional Constitutional: no acute distress HEENT Exam HEENT Exam: Normal Neck Exam Neck Exam: Normal Breast Exam Bilateral: Breast Exam: Normal and Soft Respiratory Exam Respiratory Exam: Normal Cardiovascular Exam Cardiovascular Exam: Normal Abdominal Exam Abdomen: Other (nontender, soft) Fundal Exam Fundus: Below Umbilicus and Firm Rectal Exam Rectal Exam: Normal Exam Perineum: Repair Intact Extremities Exam Extremity Exam: Normal Back/Spine/Pelvis Exam Back Exam: Normal Skin Exam Skin Exam: Normal Neurological Exam Neurological Exam: Normal Psychiatric Exam Psychiatric Exam: Normal PFSH All Active Problems (Updated 01/28/21 @ 15:05 by Susana Cunningham CNM) Term delivered (Acute) Stage 1 hypertension (Acute) [place] teeth extracted (Acute) Medical History (Updated 08/04/21 @ 11:46 by Sharon Barron) 38 weeks gestation of First stage of labor Vaginal discharge during in first trimester Family History (Updated 06/23/21 @ 13:15 by Susana Cunningham CNM) Maternal Grandmother Breast cancer age 50 Social History Smoking/Tobacco Use Status: Never Smoking risk assessment performed?: Yes Drug use: Never Additional Social history: Unable to ask d/t spouse in room History History 1 Para 0 Hx # Term Pregnancies 0 Multiple births 0 Hx # Pregnancies 0 Ectopic pregnancies 0 AB induced 0 Hx Number of Living Children 0 AB spontaneous 0 DS: Data Vitals/I&O Vitals and I&O: Vital Signs Temperature 97.5 F L 08/04/21 07:30 Pulse 85 08/04/21 07:30 Pulse Rhythm Regular 08/04/21 07:40 Respiratory Rate 16 08/04/21 07:30 Respiratory Depth Normal 08/04/21 07:40 Blood Pressure 133/87 08/04/21 07:30 Blood Pressure Mean 102 08/04/21 07:30 Pulse Oximetry 99 08/04/21 07:30 Oxygen Delivery Method Room Air 08/02/21 22:52 Oxygen Flow Rate 0 08/02/21 22:52 Pain Level 3 08/04/21 05:25 Comment 08/03/21 17:05 Intake & Output 08/03/21 08/04/21 08/04/21 23:59 11:59 23:59 Intake Total 500 / 1308 Output Total 700 / 700 800 / 800 Balance -200 / 608 -800 / -800 Intake: Oral 500 / 1300 Output: Urine 700 / 700 800 / 800 Data Completed and Pending Labs on day of discharge: Labs from last 24 hours 08/04/21 07:11 WBC 11.08 H RBC 3.16 L Hgb 9.7 L Hct 29.9 L MCV 94.6 MCH 30.7 MCHC 32.4 RDW 12.8 Plt Count 162 MPV 11.5 H
== END 2021-08-04 16:10 | disposition home or self-care (01) | DRG 807 ==
PROVIDERS: Advanced Practice Midwife; Admitting Provider Advanced Practice Midwife; PCP Family Medicine; Visit Provider Advanced Practice Midwife
DX: O16.4 Unspecified maternal hypertension, complicating childbirth (principal); Z37.0 Single live birth; Z20.822 Contact with and (suspected) exposure to COVID-19; Z3A.38 38 weeks gestation of pregnancy; O70.1 Second degree perineal laceration during delivery
CPT/HCPCS: 36415; 80053; 85027; 86850; 86900; 86901; 87635; J2590; J3490

== ENCOUNTER 2023-05-09 17:51 | Outpatient (REF) | payer BC, SELFPAY ==
[2023-05-09 19:45] LABS: Anion Gap 11.6 mmol/L (3-11); BUN 18 mg/dL (7-18); CO2 24.4 mmol/L (21.0-32.0); CREATININE 0.8 mg/dL (0.55-1.02); Calcium 9.7 mg/dL (8.5-10.1); Chloride 102 mmol/L (98-107); Glucose 111 mg/dL (74-106); Potassium 3.7 mmol/L (3.5-5.1); Sodium 138 mmol/L (136-145)
== END 2023-05-09 17:52 | disposition home or self-care (01) ==
LOC: NCHCN 17:51
PROVIDERS: PCP Family Medicine; Visit Provider Nurse Practitioner Family
DX: I10 Essential (primary) hypertension (principal)
CPT/HCPCS: 80048

== ENCOUNTER 2023-08-03 04:44 | Outpatient (CLI) | payer BC, SELFPAY ==
[2023-08-03 14:40] LABS: Panorama Kit Sent via Fed Ex
[2023-08-03 14:45] LABS: Abs Immature Grans 0.02 10^3/uL (0.0-0.06); Absolute Basophil Count 0.02 10^3/uL (0.0-0.2); Absolute Eosinophil Count 0.05 10^3/uL (0.0-0.7); Absolute Lymphocyte Count 1.72 10^3/uL (1.2-3.4); Absolute Monocyte Count 0.36 10^3/uL (0.1-0.8); Absolute Neutrophil Count 6.25 10^3/uL (1.2-6.7); Basophils % 0.2; Eosinophils % 0.6; HCT 38.3 % (36.0-46.0); Immature Grans % 0.2; Lymphocytes % 20.4; MCHC 33.9 % (32.0-36.0); MCV 94 fL (80-95); MPV 10.3 fL (8.0-11.0); Monocytes % 4.3; Neutrophils % 74.3; Platelet Count 277 10^3/uL (130-400); RBC 4.06 10^6/uL (3.93-5.22); RDW 11.9 % (11.7-14.6); RDW-SD 41.6 fL; WBC 8.42 10^3/uL (4.4-10.8)
[2023-08-03 15:17] LABS: ALT 15 U/L (14-59); AST 11 U/L (15-37); Alkaline Phosphatase 39 U/L (46-116); Anion Gap 8.9 mmol/L (3-11); BUN 9 mg/dL (7-18); Bilirubin, Total 0.2 mg/dL (0.2-1.0); CO2 26.1 mmol/L (21.0-32.0); CREATININE 0.7 mg/dL (0.55-1.02); Calcium 9.3 mg/dL (8.5-10.1); Chloride 103 mmol/L (98-107); Estimated GFR 121.49 (mL/min/1.73m2); Glucose 118 mg/dL (74-106); Potassium 3.7 mmol/L (3.5-5.1); Sodium 138 mmol/L (136-145); TSH (W/Ref FT4) 1.11 uIU/mL (0.36-3.74); Total Protein 7.6 g/dL (6.4-8.2)
[2023-08-04 09:04] LABS: Hepatitis B Surface Ag Negative (Negative)
[2023-08-04 09:45] LABS: HIV-1/2 Ag & Ab Screen Negative (Negative)
[2023-08-04 09:53] LABS: Hepatitis C Ab w Rflx HCV PCR Negative (Negative)
[2023-08-04 11:04] LABS: Rubella IgG Ab (UVM) Positive (See Note); Varicella IgG Antibody Positive (See Note)
[2023-08-05 21:20] LABS: Syphilis IgG w/Reflex Nonreactive (Nonreactive)
== END 2023-08-03 04:45 | disposition home or self-care (01) ==
LOC: LBO 04:44
PROVIDERS: PCP Family Medicine; Visit Provider Advanced Practice Midwife
DX: Z34.91 Encounter for supervision of normal pregnancy, unspecified, first trimester
CPT/HCPCS: 36415; 80053; 86787; 86803; 86850; 86900; 86901; 87340; 87389; 84443; 85025; 86762; 86780

== ENCOUNTER 2023-08-03 14:03 | Outpatient (REF) | payer BC, SELFPAY ==
[2023-08-03 15:26] LABS: *AMPHETAMINES SCREEN URINE Negative (Negative); *BARBITURATES SCREEN URINE Negative (Negative); *BENZODIAZEPINES SCREEN URINE Negative (Negative); COMMENT (LAB VIEW ONLY) 21.96 mg/dL; Cannabinoids THC Negative (Negative); Cocaine Screen,Urine Negative (Negative); METHADONE URINE SCREEN Negative (Negative); OPIATES URINE SCREEN Negative (Negative); PROTEIN < 6.0 mg/dL
[2023-08-03 15:27] LABS: Tricyclic Antidepressants Negative (Negative)
[2023-08-04 13:57] LABS: Chlamydia Result Negative (Negative); GC Result Negative (Negative)
[2023-08-09 09:18] LABS: Buprenorphine Negative ng/mL (Cutoff: 5.0); Norbuprenorphine Negative ng/mL (Cutoff: 2.5)
== END 2023-08-03 14:04 | disposition home or self-care (01) ==
LOC: LBN 14:03
PROVIDERS: PCP Family Medicine; Visit Provider Advanced Practice Midwife
DX: Z34.91 Encounter for supervision of normal pregnancy, unspecified, first trimester
CPT/HCPCS: 80307; 80348; 87491; 87591; 82565; 84156; 87086

== ENCOUNTER → 2023-11-28 02:25 | Outpatient (CLI) | payer BC, SELFPAY ==
--- NOTE | 2023-11-28 07:00 | DI.US_ITS ---
Exam(s) US OB TEAGAN WEIGHT EXAM: US OB TEAGAN WEIGHT CLINICAL HISTORY: hypertension in ,I10. TECHNIQUE: Transabdominal obstetrical ultrasound was performed. COMPARISON: US POCUS EXAM from 07/12/2023 FINDINGS: There is a single viable intrauterine gestation with cardiac activity identified-157 bpm The fetus is presently in transverse position with head on the maternal right side. Amniotic fluid: There is a normal amount of amniotic fluid with an TEAGAN of 19.9cm. Placental location: The placenta is posterior grade 1,with no evidence of placenta previa. Dating parameters place this at approximately 29 weeks and 2 days gestational age, implying AV of 02/11/2024. BPD measures 29 weeks and 3 days HC measures 29 weeks and 6 days AC measures 28 weeks and 6 days FL measures 28 weeks and 5 days Estimated weight is 1305 gm-2 pounds, 14 ounces Fetus is at the 62nd percentile on the Hadlock scale. IMPRESSION:: Viable intrauterine gestation, as described above. Twenty-nine weeks and 2 days gestat ional age, implying AV of 02/11/2024. Normal amount of amniotic fluid Posterior grade 1 placenta without evidence of placenta previa. Measurements as above. DATA REPOSITORY:
== END ==
PROVIDERS: PCP Family Medicine; Visit Provider Advanced Practice Midwife
DX: O13.2 Gestational [pregnancy-induced] hypertension without significant proteinuria, second trimester (principal); Z3A.29 29 weeks gestation of pregnancy
CPT/HCPCS: 76816

== ENCOUNTER 2023-11-28 03:57 | Outpatient (CLI) | payer BC, SELFPAY ==
[2023-11-28 09:23] LABS: HGB 12.6 g/dL (11.2-15.7); MCH 32.9 pg (27.0-33.0); MCHC 33.2 % (32.0-36.0); MCV 99 fL (80-95); Platelet Count 187 10^3/uL (130-400); RBC 3.83 10^6/uL (3.93-5.22); RDW 12.1 % (11.7-14.6)
[2023-11-28 09:39] LABS: Glucose,1 Hr (Glucola) 57 mg/dL (80-140)
== END 2023-11-28 03:58 | disposition home or self-care (01) ==
LOC: LBO 03:57
PROVIDERS: PCP Family Medicine; Visit Provider Advanced Practice Midwife
DX: Z34.93 Encounter for supervision of normal pregnancy, unspecified, third trimester
CPT/HCPCS: 36415; 82950; 85027

== ENCOUNTER → 2024-01-23 02:12 | Outpatient (CLI) | payer BC, SELFPAY ==
--- NOTE | 2024-01-23 07:15 | DI.US_ITS ---
Exam(s) US OB TEAGAN WEIGHT EXAM: US OB TEAGAN WEIGHT CLINICAL HISTORY: interval growth, stage 1 htn, , I10, Z34.90. TECHNIQUE: Transabdominal obstetrical ultrasound performed. COMPARISON: US US OB TEAGAN WEIGHT from 11/28/2023 FINDINGS: Number of fetuses: 1 position: CEPHALIC Placental location: There is a grade 2 posterior placenta. No evidence of previa. BIOMETRIC DATA: BPD: 9.02cm, 36weeks 4days HC: 33.2cm, 37weeks 6days AC: 32.97cm, 36weeks 6days FL: 7.15cm, 36weeks 4days EFW: 3,058.98g, 6lb 11.94oz, 69.3% Composite Age: 37weeks AV: 02/13/2024 Heart Rate: 129bpm Amniotic fluid index: 19.46cm. The largest pocket is 6.2 cm. IMPRESSION: 1. Single live intrauterine gestation as above. 2. Estimated weight is 3059gms. This is the 69th percentile. 3. Amniotic fluid index is 19.5 cm. The largest pocket is 6.2 cm. DATA REPOSITORY:
== END ==
PROVIDERS: PCP Family Medicine; Visit Provider Advanced Practice Midwife
DX: O10.013 Pre-existing essential hypertension complicating pregnancy, third trimester (principal); Z3A.37 37 weeks gestation of pregnancy
CPT/HCPCS: 76816

== ENCOUNTER 2024-01-23 10:41 | Outpatient (REF) | payer BC, SELFPAY | END 2024-01-23 10:42 | disposition home or self-care (01) | LOC: LBN 10:41 | PROVIDERS: PCP Nurse Practitioner Family; Visit Provider Advanced Practice Midwife | DX: Z34.93 Encounter for supervision of normal pregnancy, unspecified, third trimester (principal); Z3A.36 36 weeks gestation of pregnancy | CPT/HCPCS: 87081 ==

== ENCOUNTER 2024-02-13 04:02 | Inpatient (IN) | payer BC, SELFPAY ==
[2024-02-13] VITALS (15 sets, daily range): BP systolic 111–144; BP diastolic 55–84; PULSE 69–110; RESP 16–98; TEMP 36.5–37.3; O2SAT 98–100
--- NOTE | 2024-02-13 04:43 | HPE_ITS ---
Date of service: 02/13/24 Time of Service: 04:43 Assessment and Plan Assessment and plan (1) Spontaneous onset of labor: Status: Acute Assessment and plan: Admit to Center. Comfort measures. Anticipate . OB-HPI Labor/Delivery History of Present Illness Reason for Visit: term labor Chief Complaint: Uterine Contractions. AV Calculator Estimated Delivery Date Method Current WG Current Estimate 02/18/24 LMP (Certain) 39w 2d Other Estimates 02/21/24 Ultrasound #1 38w 6d Comments: Azalea called with regular contractions at home. She denies ruptured membranes History of Present Expected Delivery Route/Plan - CNM FOB/ - Shahriar Rousseau (2nd child together) BB yes to circ Wants to avoid regional anesthesia, Shahriar for support GBS negative Specific Issues/Plan 1. Stage 1 cHTN, stopped lisinopril in early (5 wks) 1a. [facility] MFM consult & level 2 scan, low dose ASA at 12 wks (pt declined); per Dr. Guzman no meds indicated unless BP >140/90 1b. Level 2=nml, MFM: interval growth scans q4-6 wks (locally) & IOL 39-40 wks if remains off meds, earlier if meds required to keep BP below 140/90. MFM advised low dose ASA (@ 19 wks), pt has not started as of 10/31/23 1c. EFW/TEAGAN @ 28 wks is 62nd percentile, TEAGAN 19.9, next scan @ 36 wks: 69th%, TEAGAN 19 1d. Patient prefers no induction if BP remains WNL. 2. Desires cfDNA Low risk, Male, declines CF/SMA screens 3. Plans to pump breastmilk and bottlefeed, supplement w/formula if needs to PFSH All Active Problems (Updated 02/13/24 @ 04:55 by Susana Cunningham CNM) Spontaneous onset of labor (Acute) exposure to antihypertensive drug (Acute) (Acute) Stage 1 hypertension (Acute) Medical History (Updated 02/13/24 @ 04:55 by Susana Cunningham CNM) Positive test Frequent UTI Surgical History (Updated 03/14/23 @ 15:44 by Christy Guzman MD) [place] teeth extracted Family History (Updated 06/23/21 @ 13:15 by Susana Cunningham CNM) Maternal Grandmother Breast cancer age 50 Social History Smoking/Tobacco Use Status: Never Smoking risk assessment performed?: Yes Alcohol Intake: never Drug use: Never Housing: house Additional Social history: Unable to ask d/t spouse in room History History 2 Para 1 Hx # Term Pregnancies 1 Multiple births 0 Hx # Pregnancies 0 Ectopic pregnancies 0 AB induced 0 Hx Number of Living Children 1 AB spontaneous 0 Past Pregnancies Del. Date GA/Weeks # Preg Succ Route Wgt Sex Labor Lgth Anesth esia Location Prov Complic 08/03/21 38 No Yes vaginal 7 lb 13 oz Female 12 local Aleks coffman CNM Delivery Date: 08/03/21 Last Updated by: Camilla Barron Spont labor, cHTN (stage 1) no meds, nml , Leti Meds Allergies and Home Medications Allergies Allergy/AdvReac Type Severity Reaction Status Date / Time No Known Allergies Allergy Verified 02/06/24 11:04 Home Medications Medication Instructions Recorded Confirmed Type vitamins no.162-iron 1 tab PO DAILY AM 07/12/23 02/13/24 History gluconate 12 mg-folic acid 1 mg tablet Exam Physical Exam Vital signs: Temp 97.9 F 02/13/24 04:11 Vital Signs Reviewed: Yes Narrative: BP 115/71. Constitutional Constitutional: no acute distress Detailed Labor and Delivery Exam Dilation: 5 station: -3 Consistency: soft Ortiz Score: Cervical Points Exam 0 1 2 3 Dilation Closed 1-2cm 3-4 cm 5-6cm Effacement 0-30% 40-50% 60-70% 80% Consistency Firm Medium Soft Station -3 -2 -1,0 +1,+2 Position Posterior Mid Anterior Amniotic Membrane Status: Intact Monitor Mode: External Contraction Frequency(min): every 6-7 Contraction Duration(sec): 60 Contraction Intensity: Moderate Fetus A Heart Rate Baseline: 140 Monitor Accelerations: 15 X 15 Monitor Decelerations: None and Variable (variable x 1) Variability: Moderate (6-25 BPM) Presentation: Cephalic Categories: Category I HEENT Exam HEENT Exam: Normal Chest/Brest/Axilla Exam Chest Exam: Normal Respiratory Exam Respiratory Exam: Normal Cardiovascular Exam Cardiovascular Exam: Normal Abdominal Exam Abdominal Exam: Normal Exam Exam: Normal Skin Exam Skin Exam: Normal Psychiatric Exam Psychiatric Exam: Normal Risk Assessment Risk for Shoulder Dystocia Historical/Initial OB: NEGATIVE FOR: Pelvic Abnormality, Pre- BMI>30, Previous Shoulder Dystocia or Previous Macrosomia 36 Weeks: POSITIVE FOR: Maternal Weight Gain>40lbs; NEGATIVE FOR: Current Gestational DM or EFW>4500gms 40 Weeks: POSTIVE FOR: Maternal Weight Gain >40lb (41 pounds); NEGATIVE FOR: EFW> 4500 gms or Post Dates Increased Risk?: Yes Delivery Plan @ 36wks: NVD expected EFW 69% Risk for Pre-Eclampsia Date Initiated/Initials: start @ 12 wks JK Yes, if one or more: POSTIVE FOR: Chronic HTN; NEGATIVE FOR: Hx Pre-E/Gest HTN, Multiple Gestation, Pre-gestational DM, Renal Disease, Systemic Lupus or APA Syndrome Yes, if 2 or more: NEGATIVE FOR: Nulliparity, Age>= 35 yrs, >10yr btwn pregnancies, BMI>30, ethinicty, Mother/Sister w/ Pre-E or Previous IUGR Risk for Post- Hemorrhage Initial: NEGATIVE FOR: Multiple Gestation, Previous PPH, Known Clotting Defici ency, Grand Multiparity or Anticoagulation 36 Weeks: NEGATIVE FOR: Anemia, hgb<10, Low platelets(thrombocytopenia), Gestational HTN or Pre-E, Polyhydraminios or EFW>4500gms 40 Weeks: NEGATIVE FOR: Anemia, hgb<10, Low platelets (thrombocytopenia), Gestation HTN or Pre-E, Polyhydraminios or EFW>4500gms Counseled re: Active Management: Yes Risks Reviewed Risks Reviewed Upon Admission: Yes
[2024-02-13 04:54] LABS: HCT 35.6 % (36.0-46.0); HGB 11.6 g/dL (11.2-15.7); MCH 31.2 pg (27.0-33.0); MCHC 32.6 % (32.0-36.0); MCV 96 fL (80-95); MPV 12.1 fL (8.0-11.0); Platelet Count 162 10^3/uL (130-400); RBC 3.72 10^6/uL (3.93-5.22); RDW 12.2 % (11.7-14.6); RDW-SD 41.8 fL; WBC 9.77 10^3/uL (4.4-10.8)
--- NOTE | 2024-02-13 11:26 | W.PM.OBNL1 ---
Date of service: 02/13/24 Time of Service: 11:26 Pelvic Exam Dilation: 7 Effacement (%): 90 station: -1 Cervix Position: mid Consistency: soft Vaginal Exam Presentation: Cephalic Contractions Monitor Mode: External Contraction Frequency(min): every 5-6 Contraction Duration(sec): 40-60 Intensity: Moderate/Strong Fetus A Monitor: Doppler Heart Rate Baseline: 140 Presentation: Vertex Decelerations: None Amniotic Membrane Status: Intact Assessment and Plan Assessment and plan (1) Spontaneous onset of labor: Status: Acute Assessment and plan: Azalea requests to use the tub. Continue comfort measures and anticipate . Objective Abnormal lab results 02/13/24 Range/Units 04:43 RBC 3.72 L (3.93-5.22) 10^6/uL Hct 35.6 L (36.0-46.0) % MCV 96 H (80-95) fL MPV 12.1 H (8.0-11.0) fL Temp Pulse Resp BP Pulse Ox 97.7 F 83 98 H 114/77 98 02/13/24 04:41 02/13/24 07:16 02/13/24 04:51 02/13/24 07:16 02/13/24 04:41 Laboratory Results WBC 9.77 10^3/uL (4.4-10.8) 02/13/24 04:43 RBC 3.72 10^6/uL (3.93-5.22) L 02/13/24 04:43 Hgb 11.6 g/dL (11.2-15.7) 02/13/24 04:43 Hct 35.6 % (36.0-46.0) L 02/13/24 04:43 MCV 96 fL (80-95) H 02/13/24 04:43 MCH 31.2 pg (27.0-33.0) 02/13/24 04:43 MCHC 32.6 % (32.0-36.0) 02/13/24 04:43 RDW 12.2 % (11.7-14.6) 02/13/24 04:43 Plt Count 162 10^3/uL (130-400) 02/13/24 04:43 MPV 12.1 fL (8.0-11.0) H 02/13/24 04:43 ABO/Rh A Positive 02/13/24 04:43 Antibody Screen NEGATIVE 02/13/24 04:43 Subjective Patient Reports: New Complaints Interval history since last seen: contractions are now stronger. She has been resting alternating with ambulation and shower with good effect. Results Hemoglobin/Hematocrit: Hgb 11.6 g/dL (11.2-15.7) 02/13/24 04:43 Hct 35.6 % (36.0-46.0) L 02/13/24 04:43 Abnormal Lab Findings: Abnormal Labs 02/13/24 04:43 RBC 3.72 L Hct 35.6 L MCV 96 H MPV 12.1 H
[2024-02-13] MEDS: Oxytocin 10 UNITS/ML VIAL IM (12:40)
--- NOTE | 2024-02-13 14:01 | W.OBDELIVERY ---
Date of service: 02/13/24 Time of Service: 14:06 OB Labor/ Delivery Information Baby A Delivery Delivery Method: Spontaneaous Presentation: Cephalic Vertex Position: Left Occipital Anterior Cord Description-Baby A: 3 Vessels Amniotic Fluid: Clear Estimated Blood Loss: 200 Delivery Outcome: Liveborn Note: FHTs 130s during first stage of labor. FHTs 130s in second stage. Azalea used the tub with good effect. Her membranes ruptured in the tub and she returned to bed. She progressed to full dilation and began pushing. Second stage huddle was done. Spontaneous delivery on hands and knees of male delivered in ALLYSSA position. Baby was placed on mother's abdomen and dried and stimulated. Spontaneous cry. Cord was clamped and cut by the baby's father . The placenta delivered spontaneously and appears to by intact with a three vessel cord. Pitocin 10 Units IM was administered prior to delivery of the placenta. The perineum was inspected and it is intact. There were superficial bilateral periurethral abrasions which did not require repair. The baby did breastfeed. After delivery, Mother and baby and father of the baby were stable and bonding well in the delivery room and there were no complications. Providers Nurse Records Section Supervisor: Susana Cunningham Nurse: Anthony Bishop Nurse: Maricel Baez Labor/Delivery Information Steroids Given: None Group Beta Strep: Negative Antibiotics Administered: No Rubella Status: Immune Blood Type: A+ Varicella Immunity: Immune Born En Route: No Maternal Complications: None Shoulder Dystocia: No Stages of Labor Onset of Labor Date: 02/12/24 Onset of Labor Time: 10:30 ROM Baby A: 02/13/24 ROM Baby A: 11:55 ROM Total Time- Baby A: [id number] Infant Delivery Date-Baby A: 02/13/24 Infant Delivery Time-Baby A: 12:32 Placenta Delivery Date-Baby A: 02/13/24 Placenta Delivery Time-Baby A: 12:38 Labor-Stage 3 Duration: 6 minutes Total Length of Labor-Baby A: 26 hours and 2 minutes Placenta Status: Delivered Baby A Infant Gender: Male Gestational Age in Weeks/Days: 39 Weeks and 2 Days Score-1 Minute Interval(Baby A) Heart Rate-1 minute: 100 BPM or Greater Respiratory Effort- 1 minute: Spontaneous/Strong Cry Muscle Tone-1 minute: Active Movement Reflex Response-1 minute: Prompt Response Color-1 minute: Pallor or Cyanosis Total Score-1 minute: 8 Score-5 Minute Interval(Baby A) Heart Rate- 5 minute: 100 BPM or Greater Respiratory Effort-5 minute: Spontaneous/Strong Cry Muscle Tone-5 minute: Active Movement Reflex Response-5 minute: Prompt Response Color-5 minute: Bluish Hands or Feet Total Score- 5 minute: 9
--- NOTE | 2024-02-13 18:48 | W.PM.OBPNV1 ---
Date of service: 02/13/24 Time of Service: 18:48 Assessment and Plan Assessment and plan (1) Urinary retention with incomplete bladder emptying: Status: Acute Assessment and plan: Azalea got up to void and voided 190 cc. residual immediately after voiding of 200-500 per bladder scan. Straight cathed for 500 cc clear urine. Fundus was down 2 below umbilicus after straight cath. The left shoulder pain subsided. Will plan to check for residual after each void and consider indweling urinary catheter if retention persists. Subjective Subjective Interval history: Called to Azalea's room by RN due to left shoulder pain. Azalea complains of left shoulder pain especially when she breathes in. She has been up to void x 3 and she feels as though she is emptying her bladder. Azalea reports frequent UTIs as a child which resolved in adolescence.She has not taken any pain medication and reports that she feels well. baby status: Doing well Narrative: Called to Azalea's room by RN due to left shoulder pain. Exam Physical Exam Vital signs: Temp Pulse Resp BP Pulse Ox 98.6 F 85 20 127/84 99 02/13/24 17:07 02/13/24 18:19 02/13/24 18:19 02/13/24 18:19 02/13/24 18:19 Fundal Exam Comment: fundus up and to the left, slightly boggy. Light bleeding. Results Hemoglobin/Hematocrit: Hgb 11.6 g/dL (11.2-15.7) 02/13/24 04:43 Hct 35.6 % (36.0-46.0) L 02/13/24 04:43 Abnormal Lab Findings: Abnormal Labs 02/13/24 04:43 RBC 3.72 L Hct 35.6 L MCV 96 H MPV 12.1 H
[2024-02-13] MEDS: Acetaminophen 325 MG TAB 650 MG PO (20:16)
[2024-02-13] MEDS: Ibuprofen 600 MG TAB PO (20:16)
[2024-02-14 08:07] VITALS: BP 128/87; PULSE 92; RESP 12; TEMP 36.7; O2SAT 97
[2024-02-14] MEDS: Hamamelis Leaf/Glycerin 100 EACH BOX PR (08:54)
--- NOTE | 2024-02-14 09:26 | OBPPV_ITS ---
Date of service: 02/14/24 Time of Service: 08:45 Assessment and Plan Assessment and plan (1) care following vaginal delivery: Status: Acute Assessment and plan: 1. Is voiding and feels she is emptying each time. Had 100cc residual. Fundus has remained firm and 2 finger bredths below umbilicus, minimal bleeding 2. Planning for discharge this afternoon. 3. Denies need for meds at home. 4. has appointment for vasectomy consult in March. She is considering POP at 6 week PP until negative sperm count is done post procedure. (2) Lactating mother: Status: Acute Assessment and plan: 1. Continue present management. Subjective Subjective Interval history: Feeling well. States she has some muscle aches and a small hemorrhoid noted today. No chest pain, no SOB or problems voiding. Had 100cc residule after last void. Would like to go home today. Patient's Mood: upbeat, has had PP blues in past, denies today [place] baby status: Doing well, Nursing well and Strong Bonding Observed feeding status: Exclusively breast feeding Exam Physical Exam Vital signs: Temp Pulse Resp BP Pulse Ox 98.1 F 92 H 12 128/87 97 02/14/24 08:07 02/14/24 08:07 02/14/24 08:07 02/14/24 08:07 02/14/24 08:07 Vital Signs Reviewed: Yes Constitutional Constitutional: no acute distress, average body habitus and cooperative HEENT Exam HEENT Exam: Normal Neck Exam Neck Exam: Normal (normal visual inspection) Respiratory Exam Respiratory Exam: Normal Cardiovascular Exam Cardiovascular Exam: Normal Abdominal Exam Abdomen: Other (normal exam) Fundal Exam Fundus: Below Umbilicus and Firm Comment: small lochia noted. Rectal Exam Rectal Exam: Not Done Exam Perineum: Intact and Normal Extremities Exam Extremity Exam: Normal (denies calf tenderness) and Full ROM Back/Spine/Pelvis Exam Back Exam: Normal Skin Exam Skin Exam: Normal Neurological Exam Neurological Exam: Normal Psychiatric Exam Psychiatric Exam: Normal Results Hemoglobin/Hematocrit: Hgb 11.6 g/dL (11.2-15.7) 02/13/24 04:43 Hct 35.6 % (36.0-46.0) L 02/13/24 04:43 Abnormal Lab Findings: Abnormal Labs 02/13/24 04:43 RBC 3.72 L Hct 35.6 L MCV 96 H MPV 12.1 H
--- NOTE | 2024-02-14 11:53 | DSE_ITS ---
Date of service: 02/14/24 Time of Service: 11:53 DS: Diagnosis Discharge Diagnosis (1) care following vaginal delivery: Status: Acute Asessment and Plan: 1. Normal PP exam today 2. Mild urinary retention, patient will focus on emptying bladder every 3 hours during day and at least once at night. Reviewed how to check fundus and if rising above umbilicus to call 3. Planning POP at 6 week PP time for contraception until Vasectomy is completed, consult in March. 4. Will RTO 2 and 6 weeks PP or prn. BRYCE (2) Lactating mother: Status: Acute Asessment and Plan: 1. Continue present management 2. follow up with Pediatric provider as scheduled for weight checks 3. Will call with any concnerns. Discharge Plan Disposition Patient Disposition: Home Condition: Good Discharge Details Reason For Visit: term labor Admit Date/Time: 02/13/24 04:28 Admit Provider: Susana Cunningham Attending Provider: Susana Cunningham Primary Care Provider: Maggie Puri Hospital Course Hospital Course: Normal labor and delivery. PP course complicated by some urinary retention and referred pain into chest that resolved with bladder being emptied. Breast feeding going fairly well. Baby has some mucous causing gagging at times. Planning vasectomy and until that is complete will use POP after 6 weeks of abstinence. BRYCE Home Meds and New Rx's Prescriptions: Continued PNV no.162-iron glu-folic acid 12-1 mg tablet 1 tab PO DAILY AM Discharge Instructions Activity:: Activity as Tolerated Equipment/Supplies:: No Equipment Needed Diet:: As Tolerated Discharge Orders Discharge Orders: Discharge Order (Routine); Ordered 02/14/24 Ordered By: Susana Brambila OB:DS Summary Summary Vaginal Delivery Method: Spontaneaous Episiotomy Description: None Contraception Discussed Contraception Discussed: Yes Contraceptive Plan: Control Pill/Patch and Vasectomy, Gender-Baby A: Male Status at Discharge Functional status at discharge: independent ambulation Overall status at discharge: patient is back to baseline Mental Status: mental status grossly normal Speech and Movement: speech and movement normal Mood: congruent mood Affect: normal affect Time Spent with Patient providing and/or coordinating discharge services: Less than 30 minutes Quality:SDOH Health Related Social Needs: No Data to Display Exam Physical Exam Vital signs: Temp Pulse Resp BP Pulse Ox 98.1 F 92 H 12 128/87 97 02/14/24 08:07 02/14/24 08:07 02/14/24 08:07 02/14/24 08:07 02/14/24 08:07 Vital Signs Reviewed: Yes Constitutional Constitutional: no acute distress, average body habitus and cooperative HEENT Exam HEENT Exam: Normal Neck Exam Neck Exam: Normal (normal visual inspection) Respiratory Exam Respiratory Exam: Normal Cardiovascular Exam Cardiovascular Exam: Normal Abdominal Exam Abdomen: Other (normal exam) Fundal Exam Fundus: Below Umbilicus and Firm Comment: small lochia noted. KH Rectal Exam Rectal Exam: Not Done Exam Perineum: Intact and Normal Extremities Exam Extremity Exam: Normal (denies calf tenderness) and Full ROM Back/Spine/Pelvis Exam Back Exam: Normal Skin Exam Skin Exam: Normal Neurological Exam Neurological Exam: Normal Psychiatric Exam Psychiatric Exam: Normal PFSH All Active Problems Lactating mother (Acute) care following vaginal delivery (Acute) Urinary retention with incomplete bladder emptying (Acute) Spontaneous onset of labor (Acute) exposure to antihypertensive drug (Acute) (Acute) Stage 1 hypertension (Acute) Medical History Positive test Frequent UTI Surgical History [place] teeth extracted Family History Maternal Grandmother Breast cancer age 50 Social History Smoking/Tobacco Use Status: Never Smoking risk assessment performed?: Yes Alcohol Intake: never Drug use: Never Housing: house Additional Social history: Unable to ask d/t spouse in room History History 2 Para 1 Hx # Term Pregnancies 1 Multiple births 0 Hx # Pregnancies 0 Ectopic pregnancies 0 AB induced 0 Hx Number of Living Children 1 AB spontaneous 0 Past Pregnancies Del. Date GA/Weeks # Preg Succ Route Wgt Sex Labor Lgth Anesth esia Location Prov Complic 08/03/21 38 No Yes vaginal 7 lb 13 oz Female 12 local Aleks coffman CNM Delivery Date: 08/03/21 Last Updated by: Camilla Barron Spont labor, cHTN (stage 1) no meds, nml , Leti DS: Data Vitals/I&O Vitals and I&O: Vital Signs Temperature 98.1 F 02/14/24 08:07 Temperature 97.7 F 02/13/24 04:59 Temperature Source Oral 02/14/24 08:07 Pulse 92 H 02/14/24 08:07 Pulse 101 02/13/24 04:59 Pulse Rhythm Regular 02/13/24 17:07 Respiratory Rate 12 02/14/24 08:07 Blood Pressure 128/87 02/14/24 08:07 Blood Pressure 115/73 02/13/24 04:59 Blood Pressure Mean 100 02/14/24 08:07 Pulse Oximetry 97 02/14/24 08:07 Oxygen Delivery Method Room Air 02/13/24 18:18 Oxygen Flow Rate 0 02/13/24 18:18 Comment pt c/o of chest discomfort, and having a hard time taking a breathe. no evidence of increased work of breathing ( no pursed lips, no retractions, no wheezing, no use of accessory muscles, no upright or forward posturing, able to speak with ease) denies hx of cold symptoms. CNM informformed. 02/13/24 20:05 Intake & Output 02/13/24 02/13/24 02/14/24 11:59 23:59 11:59 Output Total 200 / 1340 1140 / 1340 250 / 250 Balance -200 / -1340 -1140 / -1340 -250 / -250 Weight 174 lb Output: Urine 200 / 1340 1140 / 1340 250 / 250 Other: Urine Color Yellow Yellow Yellow Urine Appearance Clear Clear Urine Odor None None Comment patient voided for the third time. will do PVR after she finishes Voiding Methods Toilet
== END 2024-02-14 14:05 | disposition home or self-care (01) | DRG 807 ==
PROVIDERS: Admitting Provider Advanced Practice Midwife; PCP Nurse Practitioner Family; Visit Provider Advanced Practice Midwife
DX: O10.92 Unspecified pre-existing hypertension complicating childbirth (principal); Z37.0 Single live birth; O71.82 Other specified trauma to perineum and vulva; O75.89 Other specified complications of labor and delivery; R33.9 Retention of urine, unspecified; M25.512 Pain in left shoulder; Z3A.39 39 weeks gestation of pregnancy
CPT/HCPCS: 36415; 85027; 86850; 86900; 86901; J2590

== ENCOUNTER 2024-04-05 15:23 | Outpatient (REF) | payer BC, SELFPAY ==
--- NOTE | 2024-04-05 14:50 | PAPFT_PTH ---
PATIENT: Azalea Rousseau LOC: [facility] U#:[id number] AGE/SX: 28/F ROOM: RE04/05/[address]: Susana Cunningham : 1995 BED: DIS: 04/05/2024 SPEC #: [id number] RECD: 04/05/24 18:23 STATUS: MARCIA REQ #: [id number] MICKI: 04/05/24 14:[address]: Susana Cunningham DEPT: [facility] Cytology RECD BY: Irma Caruso ENTERED: 04/05/24 18:24 SP TYPE: PAPFT OTHR DR: Maggie Puri Tissues: 1 - CX/ENDOCX FOR PAP SMEARS Procedures: PAP THIN PREP/[facility] Screening Comments: [id number]
== END 2024-04-05 15:24 | disposition home or self-care (01) ==
LOC: LBN 15:23
PROVIDERS: PCP Nurse Practitioner Family; Visit Provider Advanced Practice Midwife
DX: Z12.4 Encounter for screening for malignant neoplasm of cervix (principal)
CPT/HCPCS: 88142